=== PATIENT | male | born 1965 | race African-American/Black ===

== ENCOUNTER 2023-08-13 21:15 | Emergency (ER) | payer OTHER, SELFPAY ==
[2023-08-13 21:18] VITALS: BP 149/100
--- NOTE | 2023-08-14 01:28 | ED.GENMED ---
History of Present Illness
General
Chief Complaint: Breathing Problem
Source: patient and police
Exam Limitations: none
Time Seen by Provider: 08/13/23 23:43
Nursing documentation reviewed up to this point in time: agreed with
Travel History
Have you had any contact with someone who has COVID-19?: No
Do you have any symptoms of coronavirus? Fever > 100 degrees, chills, cough, shortness of breath, sore throat, loss of taste or smell, muscle aches, or headache?: No
History of Present Illness
History of Present Illness:
58-year-old male with a past medical history of asthma, COPD, hypertension who presents to the emergency room for evaluation of cough and shortness of breath. Patient reports onset of symptoms earlier this evening and may have been constant since
then. He says cough is productive of dark sputum. He denies any chest pain. Denies any recent fevers or chills. He says he has had similar symptoms with COPD exacerbations in the past. He does report history of recurrent pneumonia including
episode requiring hospitalization earlier this year. EMS gave him 2 doses of albuterol with significant improvement in his symptoms.
Review of Systems
Review of Systems
All Other Systems: ROS reviewed and negative except as documented in HPI and ROS
Constitutional: Denies fever or chills
Respiratory: Reports cough and trouble breathing
Cardiac: Denies chest pain or palpitations
ABD/GI: Denies abdominal pain, nausea or vomiting
: Denies flank pain
Musculoskeletal: Denies edema, neck pain or back pain
Neurological: Denies dizzy or headache
Phy Exam
Physical Exam
Physical Exam:
General: Awake, alert; no acute distress
Head: Normocephalic, atraumatic
Eyes: Conjunctiva normal
Throat: Airway intact, handling secretions
Neck: Trachea midline, supple without meningismus
Lungs: Normal pulse ox, normal respiratory rate on room air; he has faint scattered wheezing and occasional coughing
Heart: Regular rate and rhythm, no murmurs, gallops, or rubs
Abd: Soft, non distended, nontender
Neuro: No gross deficits
Skin: no rash
Extremities: No edema in extremities, warm and well-perfused
Scores
Heart Failure Risk
Heart Failure Risk Score: Not Applicable
Heart Score for Chest Pain Patients
STEMI patient?: Not applicable
Withdrawal Assessment of Alcohol
Withdrawal Assessment Completed?: Not applicable
Course
Orders/Labs/Results
Orders:
Orders
08/14/23 00:15
CR Chest - 2 Views Urgent
Comment:
Reason For Exam: cough
08/14/23 01:26
Ipratropium/Albuterol Sulfate [Duoneb] 3 ml INH R NOW STA
Prednisone [Deltasone] 50 mg PO NOW STA
Vital Signs
Initial and Last Documented VS:
Initial Vital Signs
Temp Pulse Resp BP Pulse Ox
37.2 C 73 19 149/100 100
08/13/23 21:18 08/13/23 21:18 08/13/23 21:18 08/13/23 21:18 08/13/23 21:18
Last Documented Vital Signs
Temp Pulse Resp BP Pulse Ox
37.2 C 73 19 149/100 99
08/13/23 21:18 08/13/23 21:18 08/13/23 21:18 08/13/23 21:18 08/13/23 21:29
MDM/Problems Addressed
Differential Diagnosis Includes:
Asthma/COPD exacerbation, pneumonia, bronchitis
MDM/Problems Addressed:
58-year-old male presents for coughing and shortness of breath starting this afternoon consistent with prior COPD exacerbations; received albuterol from EMS with significant improvement in his symptoms. Vital signs and exam as documented. Will
plan to treat with p.o. steroid and additional DuoNeb here as his history and exam are consistent with COPD exacerbation. Will check chest x-ray to rule out pneumonia as he has had productive cough. Will monitor closely reassess after the above.
Chronic conditions affecting care:
COPD/asthma
Acute Exacerbation and/or Progression of Chronic Illness: HTN
*Radiology
Radiology exam reviewed: preliminary read by ED provider (No acute disease)
*Pulse Oximetry
Patient hypoxic: no
*Critical Care Note
Total Time (30-74mins, 75-104mins- exclusive of procedures): Not Applicable
Data Reviewed
Source: patient and police
ED Attending Note
-
Portions of this chart may have been created with voice recognition software.� Occasional wrong word or��sound alike� substitutions may have occurred due to the inherent limitations of voice recognition software.
Discharge Plan
Departure
Discharge Problem:
COPD exacerbation
Instructions: Exacerbation of COPD (DC)
Prescriptions:
New
prednisone 50 mg tablet
50 mg PO DAILY Qty: 4 0RF
azithromycin [Zithromax] 250 mg tablet
250 mg PO DAILY Qty: 4 0RF
Referrals:
[facility] [Family Provider] - Follow up in 2-3 days
Activity Restrictions/Additional Instructions:
Thank you for visiting the Emergency Department at [facility].
1. Please schedule a follow up appointment as directed. Call first thing tomorrow morning to make an appointment.
2. If indicated, please take your medications as instructed and indicated on discharge paperwork.
3. If any of your symptoms do not improve, or persist, or become more severe within 6-12 hours, please return to the emergency department for further care.
4. Please return to the emergency department if you develop a headache, neck pain/stiffness, fever greater than 100.4F, chest pain, shortness of breath, persistent nausea, vomiting, slurred speech, difficulty walking, numbness/tingling, weakness,
signs of infection or any other symptoms that are worrisome to you.
Please call [phone] if you have any questions.
Interventions
Interventions:
*Risk Screen - Suicide Last Done: 08/13/23 21:18
*General Assessment Last Done: 08/13/23 21:18
*Neglect/Abuse Screening Last Done: 08/13/23 21:18
ED- Fall Risk Assessment Last Done: 08/13/23 21:29
*ED COVID-19 Vaccine History Last Done: 08/13/23 21:29
ED- Cardiac Assessment Last Done: 08/13/23 21:29
ED- Pulmonary Assessment Last Done: 08/13/23 21:29
Discharge Date and Time
Print Language: LAO
[2023-08-14] MEDS: ZITHROMAX 500 MG PO (02:01)
[2023-08-14] MEDS: DELTASONE 50 MG PO (02:01)
[2023-08-14] MEDS: DUONEB 3 ML INH (02:01)
== END 2023-08-14 02:41 | disposition home or self-care (01) ==
LOC: EMR 21:15
PROVIDERS: EMERGENCY PHYSICIAN Emergency Medicine
DX: J44.1 Chronic obstructive pulmonary disease with (acute) exacerbation (principal); I10 Essential (primary) hypertension; Z87.01 Personal history of pneumonia (recurrent)
CPT/HCPCS: 99283; 94640; 71046

== ENCOUNTER → 2023-10-10 07:20 | Outpatient (REF) | payer OTHER, SELFPAY | LOC: RAD 07:20 | PROVIDERS: ATTENDING PHYSICIAN Nurse Practitioner | DX: R91.1 Solitary pulmonary nodule (principal) | CPT/HCPCS: 71250 ==